=== PATIENT | male | born 1980 | race Caucasian/White ===

== ENCOUNTER 2018-03-16 19:25 | Emergency (ER) | payer SELFPAY ==
[~2018-03-16] VITALS: Ht 152.4 cm; Wt 65.0 kg
[2018-03-16] MEDS ORDERED: IBUPROFEN 600MG TABLET PO STA (20:15)
[2018-03-16 20:40] LABS: BASOPHILS % 1.2 % (0.0-2.0); EOSINOPHILS % 2.4 % (0.0-5.0); HEMATOCRIT. 34.4 % (42.0-52.0); HEMOGLOBIN. 11.6 g/dL (14.0-18.0); LYMPHOCYTES % 32.2 % (20.0-50.0); MEAN CORPUSCULAR VOLUME 92.1 fL (80.0-94.0); MEAN PLATELET VOLUME 8.3 fl (7.4-10.4); MONOCYTES % 14.8 % (2.0-8.0); NEUTROPHILS % 49.4 % (40.0-76.0); PLATELET 212 x1000/uL (130-400); RED BLOOD CELL COUNT 3.74 mill/uL (4.7-6.1); RED CELL DISTRIBUTION WIDTH 13.7 % (11.6-14.6)
[2018-03-16 20:42] LABS: CHLORIDE 110 mEq/L (98-107)
[2018-03-16 20:46] LABS: ETHANOL BLOOD < 10 mg/dL
[2018-03-16 22:03] VITALS: BP 102/61
== END 2018-03-17 01:53 | disposition home or self-care (01) ==
LOC: ER 03-17 01:32
DX: R07.9 Chest pain, unspecified (principal)
CPT/HCPCS: 36415; 71045; 80053; 84484; 85025; 93005; 99285; G0482

== ENCOUNTER 2018-03-19 15:20 | Emergency (ER) | payer SELFPAY ==
[~2018-03-19] VITALS: Ht 175.3 cm; Wt 73.0 kg
[2018-03-19 17:13] LABS: BASOPHILS % 0.6 % (0.0-2.0); EOSINOPHILS % 0.8 % (0.0-5.0); HEMATOCRIT. 36.9 % (42.0-52.0); HEMOGLOBIN. 12.8 g/dL (14.0-18.0); LYMPHOCYTES % 15.4 % (20.0-50.0); MEAN CORPUSCULAR HEMOGLOBIN 30.9 pg (28.0-32.0); MEAN CORPUSCULAR VOLUME 88.9 fL (80.0-94.0); MEAN PLATELET VOLUME 7.9 fl (7.4-10.4); MONOCYTES % 11.7 % (2.0-8.0); NEUTROPHILS % 71.5 % (40.0-76.0); PLATELET 267 x1000/uL (130-400); RED BLOOD CELL COUNT 4.16 mill/uL (4.7-6.1); RED CELL DISTRIBUTION WIDTH 13.5 % (11.6-14.6)
[2018-03-19 17:20] LABS: CHLORIDE 92 mEq/L (98-107)
[2018-03-19 17:21] LABS: PARTIAL THROMBOPLASTIN TIME 27.8 sec (23.4-31.0); PROTHROMBIN TIME 10.7 sec (9.4-11.6)
[2018-03-19 17:28] LABS: CREATINE KINASE 257 IU/L (39-308)
[2018-03-19] MEDS ORDERED: FAMOTIDINE 20MG/2ML VIAL IV STA (18:04)
[2018-03-19] MEDS ORDERED: MAGNESIUM/ALUMINUM HYDROXIDE/SIMETHICONE 30ML UDC PO STA (18:04)
[2018-03-19] MEDS ORDERED: ONDANSETRON HCL 4MG/2ML VIAL IV STA (18:04)
[2018-03-19] MEDS ORDERED: SODIUM CHLORIDE 0.9% 1,000 ML IV ONE (18:04)
[2018-03-19] MEDS ORDERED: KETOROLAC 30MG/ML VIAL IV STA (18:04)
[2018-03-19] MEDS ORDERED: POTASSIUM CHLORIDE 20MEQ TABLET SR PO ONE (19:30)
[2018-03-19 19:53] LABS: CLARITY URINE CLEAR (CLEAR); COLOR URINE YELLOW (YELLOW); KETONES URINE NEGATIVE (NEGATIVE); LEUKOCYTE ESTERASE URINE NEGATIVE (NEGATIVE); NITRITE URINE NEGATIVE (NEGATIVE); OCCULT BLOOD URINE NEGATIVE (NEGATIVE); PROTEIN URINE NEGATIVE (NEGATIVE); SPECIFIC GRAVITY URINE 1.005 (1.005-1.030); UROBILINOGEN URINE 0.2 E.U./dL (0.2-1.0)
[2018-03-19 20:06] LABS: *AMPHETAMINES SCREEN URINE PRESUMTIVE POSITIVE (NEGATIVE); *BARBITURATES SCREEN URINE NEGATIVE (NEGATIVE); *BENZODIAZEPINES SCREEN URINE NEGATIVE (NEGATIVE); *COCAINE SCREEN URINE NEGATIVE (NEGATIVE)
[2018-03-19 20:07] LABS: CANNABINOID URINE SCREEN NEGATIVE (NEGATIVE); METHADONE URINE SCREEN NEGATIVE (NEGATIVE); OPIATES URINE SCREEN NEGATIVE (NEGATIVE); PHENCYCLIDINE URINE SCREEN NEGATIVE (NEGATIVE)
[2018-03-19 20:33] LABS: CHLORIDE 103 mEq/L (98-107)
[2018-03-19 20:34] LABS: PROTHROMBIN TIME 10.8 sec (9.4-11.6)
[2018-03-19 20:37] LABS: ETHANOL BLOOD < 10 mg/dL
[2018-03-19 23:33] VITALS: BP 126/75
== END 2018-03-19 23:36 | disposition home or self-care (01) ==
LOC: ER 15:20
DX: K29.20 Alcoholic gastritis without bleeding (principal); R07.89 Other chest pain; F15.10 Other stimulant abuse, uncomplicated; F10.10 Alcohol abuse, uncomplicated; Y90.0 Blood alcohol level of less than 20 mg/100 ml
CPT/HCPCS: 36415; 71045; 80053; 80305; 81003; 82550; 82553; 83690; 83880; 84443; 84484; 85025; 85610; 85730; 93005; 96360; 96361; 99285; G0482; J1885; J2405; J3490; J7030

== ENCOUNTER 2018-03-21 15:41 | Emergency (ER) | payer SELFPAY ==
[~2018-03-21] VITALS: Ht 152.4 cm; Wt 66.0 kg
[2018-03-21] MEDS ORDERED: IBUPROFEN 600MG TABLET PO STA (16:00)
[2018-03-21 16:26] LABS: BASOPHILS % 0.7 % (0.0-2.0); EOSINOPHILS % 1.7 % (0.0-5.0); HEMATOCRIT. 35.7 % (42.0-52.0); HEMOGLOBIN. 12.6 g/dL (14.0-18.0); LYMPHOCYTES % 20.4 % (20.0-50.0); MEAN CORPUSCULAR HEMOGLOBIN 31.1 pg (28.0-32.0); MEAN CORPUSCULAR VOLUME 87.8 fL (80.0-94.0); MEAN PLATELET VOLUME 7.8 fl (7.4-10.4); MONOCYTES % 10.2 % (2.0-8.0); PLATELET 317 x1000/uL (130-400); RED BLOOD CELL COUNT 4.07 mill/uL (4.7-6.1); RED CELL DISTRIBUTION WIDTH 13.4 % (11.6-14.6)
[2018-03-21 16:29] LABS: CHLORIDE 89 mEq/L (98-107)
[2018-03-21 16:33] LABS: ETHANOL BLOOD < 10 mg/dL
[2018-03-21] MEDS ORDERED: SODIUM CHLORIDE 0.9% 500 ML IV ONE (17:15)
[2018-03-21 19:54] LABS: CHLORIDE 93 mEq/L (98-107)
[2018-03-21 22:21] VITALS: BP 110/69
== END 2018-03-21 22:34 | disposition home or self-care (01) ==
LOC: ER 16:00
DX: R07.89 Other chest pain (principal); E87.1 Hypo-osmolality and hyponatremia; R94.31 Abnormal electrocardiogram [ECG] [EKG]
CPT/HCPCS: 36415; 71045; 80048; 80053; 84484; 85025; 93005; 96360; 96361; 99285; G0482; J7040

== ENCOUNTER 2018-03-27 23:33 | Emergency (ER) | payer SELFPAY ==
[~2018-03-27] VITALS: Ht 162.6 cm; Wt 73.0 kg
[2018-03-28] MEDS ORDERED: LORAZEPAM 2MG/ML CPJ IV ONE ×2 (00:30→00:45)
[2018-03-28] MEDS ORDERED: LORAZEPAM 2MG/ML CPJ ONE (00:40)
[2018-03-28] MEDS ORDERED: PHENOBARBITAL SODIUM 65MG/ML 1ML IV ONE (00:45)
[2018-03-28 01:04] LABS: HEMOGLOBIN. 12.4 g/dL (14.0-18.0); MEAN CORPUSCULAR HEMOGLOBIN 30.6 pg (28.0-32.0); MEAN CORPUSCULAR VOLUME 91.6 fL (80.0-94.0); PLATELET 375 x1000/uL (130-400); RED BLOOD CELL COUNT 4.04 mill/uL (4.7-6.1); RED CELL DISTRIBUTION WIDTH 13.6 % (11.6-14.6)
[2018-03-28 01:05] LABS: CHLORIDE 88 mEq/L (98-107)
[2018-03-28 01:09] LABS: ETHANOL BLOOD 70 mg/dL
[2018-03-28 01:49] LABS: PLATELET ESTIMATE NORMAL
[2018-03-28] MEDS: KCL 20MEQ/100ML PREMIX 100 ML IV SCH ×2 (03:24→03:50)
[2018-03-28 04:34] VITALS: BP 140/87
[2018-03-28] MEDS ORDERED: POTASSIUM CHLORIDE INJ 30 MEQ in DEXT 5%/0.9% NACL 1,000 ML IV ONE (05:45)
== END 2018-03-28 06:32 | disposition left against medical advice (07) ==
LOC: ER 23:33 → EDBEDREQ 03-28 05:51 → EDBEDREQTM 03-28 05:51 → ER 03-28 06:32 → CANBEDREQ 03-28 11:53
DX: R56.9 Unspecified convulsions (principal); R07.9 Chest pain, unspecified; E87.1 Hypo-osmolality and hyponatremia; F10.20 Alcohol dependence, uncomplicated; Y90.3 Blood alcohol level of 60-79 mg/100 ml
CPT/HCPCS: 36415; 70450; 71045; 80053; 82962; 83880; 84443; 84484; 85025; 86850; 86900; 86901; 93005; 96365; 96375; 99285; G0482; J2060; J2560; J3480; J7040; Z7610; J7042